=== PATIENT | male | born 1955 ===

== ENCOUNTER 2021-10-26 14:00 | Outpatient (RCR) | payer MEDICARE, OTHER, SELFPAY | END 2022-01-11 08:52 | disposition home or self-care (01) | LOC: HO.WCC 14:00 | PROVIDERS: PCP Internal Medicine; Visit Provider Physician Assistant | DX: S81.812A Laceration without foreign body, left lower leg, initial encounter (principal); I87.2 Venous insufficiency (chronic) (peripheral); Z79.899 Other long term (current) drug therapy | CPT/HCPCS: 11042; 11045; 15271; 88304; 88305; 97597; 99212; Q4101 ==

== ENCOUNTER 2022-01-15 08:46 | Outpatient (RCR) | payer MEDICARE, OTHER, SELFPAY | END 2022-02-06 12:29 | disposition home or self-care (01) | LOC: HO.WCC 08:46 | PROVIDERS: PCP Internal Medicine; Visit Provider Physician Assistant | DX: S81.812D Laceration without foreign body, left lower leg, subsequent encounter (principal); I87.2 Venous insufficiency (chronic) (peripheral) | CPT/HCPCS: 97597; 99212 ==

== ENCOUNTER 2022-02-12 10:12 | Outpatient (RCR) | payer MEDICARE, OTHER, SELFPAY | END 2022-03-01 14:23 | disposition home or self-care (01) | LOC: HO.WCC 10:12 | PROVIDERS: PCP Internal Medicine; Visit Provider Physician Assistant | DX: L97.822 Non-pressure chronic ulcer of other part of left lower leg with fat layer exposed (principal); I87.2 Venous insufficiency (chronic) (peripheral); I83.92 Asymptomatic varicose veins of left lower extremity | CPT/HCPCS: 97597; 99212 ==